=== PATIENT | male | born 1950 | race Caucasian/White ===

== ENCOUNTER 2020-09-08 08:56 | Outpatient (CLI) | payer MEDICARE ==
--- NOTE | 2020-09-08 10:24 | BD ---
DEXA BONE DENSITY EXAM: HISTORY: A 70-year-old male with osteopenia. FINDINGS: Lumbar Spine: BMD (g/cm2) L1 1.129 T-Score: 0.5 L2 1.171 T-Score: 0.7 L3 1.234 T-Score: 1.2 L4 1.329 T-Score: 2.2 L1-L4 1.214 T-Score: 1.1 Femoral Neck: 0.808 T-Score: -0.9 Total Femur: 0.994 T-Score: -0.3 Impression: Normal bone mineral density. POS: AH
== END 2020-09-08 08:57 | disposition home or self-care (01) ==
LOC: BICMAMMO 08:56
PROVIDERS: ATTEND Internal Medicine
DX: Z13.820 Encounter for screening for osteoporosis (principal); K90.0 Celiac disease
CPT/HCPCS: 77080